=== PATIENT | female | born 1940 | race Caucasian/White ===

== ENCOUNTER → 2016-11-15 | Outpatient (CLI) | payer MEDICARE, OTHER ==
[~2016-11-15] MED LIST: ASPIR 8181 MG PO; BREO ELLIPTA 11 EACH INH; COZAAR 50MG TAB50 MG PO; CRESTOR10 MG PO; FAMOTIDINE40 MG PO; FOLIC ACID 1 MG1 MG PO; JANUMET 50-1,01 EACH PO; NEURONTIN 300300 MG PO; PROAIR HFA8.5 GM INH; STOOL SOFTENER250 MG PO; SYNTHROID 50 M50 MCG PO; THEO-DUR 300 M300 MG PO; TOPROL XL 100100 MG PO; TRICOR 145 MG145 MG PO; VITAMIN B-121000 MC3 PO; VITAMIN D 11000 UNIT PO; ZYRTEC10 MG PO
== END ==
LOC: LAB 12:40
DX: E04.1 Nontoxic single thyroid nodule (principal)
CPT/HCPCS: 36415; 85610; 85730

== ENCOUNTER → 2016-11-18 | Outpatient (CLI) | payer MEDICARE, OTHER | LOC: US 09:57 | DX: E04.1 Nontoxic single thyroid nodule (principal) | CPT/HCPCS: 10022; 76536 ==

== ENCOUNTER → 2017-01-03 | Outpatient (CLI) | payer MEDICARE, OTHER ==
[2017-01-03 11:24] LABS: HEMOGLOBIN 13.2 gm/dl (12.3-15.3); RED BLOOD COUNT 4.78 M/UL (4.00-5.10); WHITE BLOOD COUNT 8.7 K/UL (4.5-11.0)
[2017-01-03 12:04] LABS: BUN/CREATININE RATIO 24 (0-10)
== END ==
LOC: LAB 10:21
PROVIDERS: Physician Assistant
DX: E87.1 Hypo-osmolality and hyponatremia (principal); E78.5 Hyperlipidemia, unspecified; I10 Essential (primary) hypertension; E03.9 Hypothyroidism, unspecified; E11.9 Type 2 diabetes mellitus without complications
CPT/HCPCS: 36415; 80053; 80061; 82043; 82533; 82570; 83036; 83930; 83935; 84443; 85025

== ENCOUNTER → 2017-01-17 | Outpatient (CLI) | payer MEDICARE, OTHER ==
[2017-01-17 14:55] LABS: BUN/CREATININE RATIO 14 (0-10)
== END ==
LOC: LAB 13:10
PROVIDERS: Internal Medicine Nephrology
DX: E87.1 Hypo-osmolality and hyponatremia (principal)
CPT/HCPCS: 36415; 80048; 83930; 83935; 84300

== ENCOUNTER → 2017-02-26 | Outpatient (CLI) | payer MEDICARE, OTHER | LOC: RAD 14:31 | DX: R07.89 Other chest pain (principal); R06.00 Dyspnea, unspecified; R05 Cough | CPT/HCPCS: 36415; 71020 ==

== ENCOUNTER 2021-08-05 12:34 | Emergency (ER) | payer MEDICARE, OTHER ==
[~2021-08-05 12:34] MED LIST changes: +ACETAMINOPHEN650 MG PR; +AMLODIPINE BESYL5 MG PO; +ANTACID LIQUID355 ML PO; +AZITHROMYCIN500 MG PO; +BIOTIN2500 MCG PO; +CEFDINIR300 MG PO; +CITALOPRAM HBR10 MG PO; +CRESTOR 10 MG T10 MG PO; +DALIRESP500 MCG PO; +FIBER TABS625 MG PO; +FLONASE 0.05% N16 GM; +K-DUR TAB 10 M10 MEQ PO; +LASIX20 MG PO; +LEVOTHYROXINE50 MCG PO; +MEDROL4 MG PO; +METOPROLOL SUC100 MG PO; +MONTELUKAST SOD10 MG PO; +PERCOCET 5-3251 EACH PO; +SINGULAIR10 MG PO; +SURFAK 240 MG240 MG PO; +TRADJENTA5 MG PO; +TYLENOL 500 MG500 MG PO; +VENTOLIN HFA 66.7 GM INH; +VITAMIN D3100 MCG PO
[2021-08-05 13:29] LABS: HEMOGLOBIN 8.5 gm/dl (12.3-15.3)
[2021-08-05 13:46] LABS: BUN/CREATININE RATIO 20 (0-10)
[2021-08-05 14:07] LABS: RED BLOOD COUNT 3.59 M/UL (4.00-5.10); WHITE BLOOD COUNT 10.7 K/UL (4.5-11.0)
== END 2021-08-05 15:07 | disposition home or self-care (01) ==
LOC: ER1 12:34
PROVIDERS: Student in an Organized Health Care Education/Training Program
DX: D64.9 Anemia, unspecified (principal); E11.9 Type 2 diabetes mellitus without complications; J44.9 Chronic obstructive pulmonary disease, unspecified; Z87.891 Personal history of nicotine dependence
CPT/HCPCS: 80048; 82270; 85025; 86850; 86900; 86901; 99285

== ENCOUNTER 2021-09-03 23:02 | Emergency (ER) | payer MEDICARE, OTHER ==
[2021-09-04 00:07] LABS: HEMOGLOBIN 8.4 gm/dl (12.3-15.3); RED BLOOD COUNT 3.24 M/UL (4.00-5.10)
[2021-09-04 00:33] LABS: BUN/CREATININE RATIO 28 (0-10)
== END 2021-09-04 09:00 | disposition home or self-care (01) ==
LOC: ER1 23:02
PROVIDERS: Emergency Medicine
DX: J96.11 Chronic respiratory failure with hypoxia (principal); E11.65 Type 2 diabetes mellitus with hyperglycemia; D64.9 Anemia, unspecified; J44.9 Chronic obstructive pulmonary disease, unspecified; Z20.822 Contact with and (suspected) exposure to COVID-19; Z88.5 Allergy status to narcotic agent
CPT/HCPCS: 36415; 36600; 71045; 80048; 82550; 82553; 82803; 83605; 83874; 83880; 84484; 85025; 87040; 93005; 96374; 99285; J2930; U0002

== ENCOUNTER → 2021-10-03 | Outpatient (CLI) | payer MEDICARE, OTHER | LOC: ECHO 10:50 | DX: Z53.9 Procedure and treatment not carried out, unspecified reason (principal) | CPT/HCPCS: ECHO; 93306 ==

== ENCOUNTER → 2021-11-02 | Outpatient (CLI) | payer MEDICARE, OTHER ==
[~2021-11-02] VITALS: Ht 165.1 cm; Wt 73.0 kg
== END ==
LOC: OPSV 12:50
DX: D50.9 Iron deficiency anemia, unspecified (principal); K90.9 Intestinal malabsorption, unspecified
CPT/HCPCS: 96365; J1439; J7030

== ENCOUNTER → 2021-11-08 | Outpatient (CLI) | payer MEDICARE, OTHER ==
[~2021-11-08] VITALS: Ht 165.1 cm; Wt 73.0 kg
== END ==
LOC: OPSV 13:00
DX: D50.9 Iron deficiency anemia, unspecified (principal); K90.9 Intestinal malabsorption, unspecified
CPT/HCPCS: 96365; J1439